=== PATIENT | male | born 1985 | race Caucasian/White ===

== ENCOUNTER → 2017-06-13 | Outpatient (CLI) | payer BC ==
--- NOTE | 2017-06-13 11:41 | MR ---
EXAMINATION TYPE: MR wrist RT wo con DATE OF EXAM: 06/13/2017 COMPARISON: NONE HISTORY: Pain in right wrist x 7 mths Standard multiplanar, multisequence MRI departmental protocol Multiplanar, multisequence images of the right were acquired. Diffusion weighted imaging was performe d. FINDINGS: There is no focal bone marrow edema appreciated. No fracture line is seen. Small subchondra l cyst is present within the lunate. Carpals are aligned. No carpocarpal widening is seen. Scapholuna te and lunatotriquetral ligaments are intact. The triangular fibrocartilage is grossly intact within the limitations of this nonarthrographic study. At the volar surface of the wrist situated between the flexor retinaculum and the trapezoid anterior to the trapezium there is a 0.5 x 0.4 x 0.3 cm cystic lesion with elongated component extending betwe en the flexor retinaculum (opposing the flexor pollicis longus tendon) and the flexor carpi radialis tendon on PD axial fat sat image 18 and 17 and coronal image 9 most commonly representing a small bryan glion cyst. Dorsally there is a second multiloculated ganglion cysts overlying the scapholunate joint and proxima l scaphoid pole that measures 1.7 x 0 point for centimeters in transverse by anterior posterior dimen alma and 1.0 cm in craniocaudal dimension on axial PD fat-sat image 11 and coronal image 18 as well a s image 17. This is seen deep to the extensor retinaculum splaying the second and third compartments. IMPRESSION: 1. Dorsal and volar ganglion cyst, unilocular at the volar surface and multilocular at the dorsal charlie face as described above. 2. Small subchondral cyst within the lunate which may represent early arthropathy or sequela of prior trauma. 3. No focal bone marrow edema, fracture or tendinosis.
== END | disposition home or self-care (01) ==
LOC: RADMRIMAIN 06:02
PROVIDERS: ATTEND Orthopaedic Surgery
DX: M67.431 Ganglion, right wrist (principal)

== ENCOUNTER → 2020-01-01 | Outpatient (CLI) | payer BC ==
--- NOTE | 2020-01-01 18:01 | CONS ---
CONSULTATION DATE OF SERVICE: 01/01/2020 This patient is a 34-year-old gentleman who has been evaluated in Sleep Center for snoring, awakenings from sleep, and for significant excessive daytime sleepiness. HISTORY OF PRESENT ILLNESS/SLEEP-WAKE EVALUATION: Patient's usual sleep schedule on weekdays is from 10 p.m. to 5 a.m. and on weekends from 11 p.m. to 7 or 8 a.m. No problems with falling asleep, although he has a TV in the bedroom. He usually sleeps on the back position. According to his , he has loud snoring, grinding of his teeth, positive history of sleeptalking and heartburn. The patient wakes up from sleep once with nocturia. Positive history of hypnagogical hallucinations. No history of sleep paralysis or cataplexy. In the morning the patient wakes up tired, falling asleep during the day. [place] Sleepiness Scale is significantly increased at 16. The patient takes up to two naps at 11 a.m. and 2 p.m. He feels refreshed after naps. He sees vivid dreams during naps. PAST MEDICAL HISTORY: Positive for acid reflux. MEDICATIONS: Celexa, omeprazole. PAST SURGICAL HISTORY: [place] tooth removed. SOCIAL HISTORY: Negative for smoking. Alcohol consumption occasional. FAMILY HISTORY: Positive for arthritis, cancer. REVIEW OF SYSTEMS: Sleepiness during the day. PHYSICAL EXAMINATION: GENERAL: A pleasant gentleman without distress. VITAL SIGNS: BP 146/80, HR 50, RR 16, height 5 feet 11-1/2 inches, weight 218 pounds. Body mass index 29.9. Temperature 97.8. Oxygen saturation at room air 96%. HEENT: PERRLA, EOMI. Evaluation of oropharynx showed tongue protrudes midline. Extremely low position of soft palate. Mallampati IV. NECK: Supple. No JVD. Thyroid is not palpable. Neck measures 16 inches in circumference. LUNGS: Clear to percussion and to auscultation. Good air exchange. No wheezing or rhonchi. HEART: S1, S2 regular. No murmurs, gallops or rubs. ABDOMEN: Soft and nontender. Bowel sounds are present. No organomegaly. EXTREMITIES: No clubbing or cyanosis. POLISHER EYEGLASS FRAMES: Awake, alert, and oriented X3. Cranial nerves 2 to 7 intact. There is no fasciculation or atrophy. noted. No focal deficits observed. IMPRESSION: 1. Loud snoring, awakenings from sleep with nocturia, extremely low position of soft palate, sleepiness; obstructive sleep apnea-hypopnea syndrome. 2. Positive history of hypnagogical hallucinations. 3. Vivid dreams during naps. 4. Significant excessive daytime sleepiness with [place] Sleepiness Scale 16. The patient takes two naps a day. Differential diagnosis should include hypersomnia, including narcolepsy without cataplexy. 5. Overweight, borderline obesity. BMI 29.9. 6. Acid reflux. PLAN: 1. Home sleep apnea test for evaluation of patient's breathing during sleep. 2. CPAP treatment if sleep study is positive for obstructive sleep apnea-hypopnea syndrome. 3. PSG with a following multiple sleep latency test if the sleep study is negative for obstructive sleep apnea-hypopnea syndrome or if after treatment of obstructive sleep apnea-hypopnea syndrome patient continues to have sleepiness. 4. Watching and losing weight. 5. No driving if feeling sleepiness. Sincerely, Ruben Thompson MD, PhD, FAASM Diplomat of [employer] Special[employer] Board of [employer] Medicine Collarette Separator of [facility] [place] MMODL / IJN: [id number] /
== END | disposition home or self-care (01) ==
LOC: SLEEP 16:39
PROVIDERS: ATTEND Internal Medicine
DX: G47.33 Obstructive sleep apnea (adult) (pediatric) (principal); K21.9 Gastro-esophageal reflux disease without esophagitis; Z86.59 Personal history of other mental and behavioral disorders; E66.9 Obesity, unspecified; Z68.29 Body mass index [BMI] 29.0-29.9, adult
CPT/HCPCS: 99211

== ENCOUNTER → 2020-03-10 | Outpatient (CLI) | payer BC ==
--- NOTE | 2020-03-11 03:02 | SFUN ---
SLEEP CENTER FOLLOW UP NOTE DATE OF SERVICE: 03/10/2020 This 34-year-old gentleman had been followed in Sleep Center for treatment of obstructive sleep apnea-hypopnea syndrome. Recently, patient had a home sleep apnea test which showed mild obstructive sleep apnea. Subsequently, patient was started on treatment with CPAP and today is his first visit on CPAP. He sleeps better with the CPAP, but he continued to feel sleepiness during the day in about the same range that he felt before starting CPAP. [place] Sleepiness Scale today is the same as before 16. I checked CPAP unit It is an automatic regimen. Range of the pressure 5-15. Average pressure 14.3, usage 25 out of 30 nights for more than 4 hours with average usage 5.7 hours per night. Leak is 23 L/minute, but apnea-hypopnea index is in normal range 2.3. MEDICATIONS: Celexa, omeprazole. PHYSICAL EXAMINATION: GENERAL: Patient in no distress. VITAL SIGNS: BP 152/67, HR 50, RR 16, weight 223 pounds, temperature 97.9, oxygen saturation at room air 95%. HEENT: PERRLA, EOMI. Oropharynx extremely low position of soft palate. Mallampati 4. NECK: Supple, no JVD. Thyroid is not palpable. LUNGS: Clear to percussion and to auscultation. Good air exchange. No wheezing or rhonchi. HEART: S1, S2 regular. No murmurs, gallops, or rubs. ABDOMEN: Soft and nontender. Bowel sounds are present. No organomegaly appreciated. EXTREMITIES: No clubbing or cyanosis. BOX OFFICE CLERK: Awake, alert, and oriented X3. Cranial nerves 2 to 7 intact. There is no fasciculation or atrophy. noted. No focal deficits observed. IMPRESSION: 1. Obstructive sleep apnea-hypopnea syndrome; apnea-hypopnea index 9.6 with oxygen desaturation down to 75% by results of home sleep apnea test. On auto PAP, patient demonstrated good compliance, respiration normalized, but the patient continued to feel sleepiness. 2. Sleepiness, [place] Sleepiness Scale 16, positive history of questionable hypnagogic hallucinations and vivid dreaming during naps. Differential diagnosis include narcolepsy as additional diagnosis. 3. Acid reflux. 4. Overweight, borderline to obesity. PLAN: 1. Patient will continue to use CPAP equipment every night for the whole night. 2. Multiple sleep latency test for objective evaluation of patient's symptoms of excessive daytime sleepiness will be done after the night on CPAP. 3. Sleep hygiene with regular time in bed for at least 7-1/2 to 8 hours. 4. No driving if feeling sleepiness. 5. I will see patient for follow-up visit after the MSLT to discuss results and following plan. Thank you very much for allowing me to participate in management of your patient. Sincerely, Ruben Thompson MD, PhD, FAASM Diplomat of [place] [employer] Specialties [employer] Board of Internal Medicine Pneudraulic Systems Mechanic of [facility] [place] MMODL / IJN: [id number] /
== END | disposition home or self-care (01) ==
LOC: SLEEP 16:43
PROVIDERS: ATTEND Internal Medicine
DX: G47.33 Obstructive sleep apnea (adult) (pediatric) (principal); Z99.89 Dependence on other enabling machines and devices; K21.9 Gastro-esophageal reflux disease without esophagitis; G47.419 Narcolepsy without cataplexy; E66.3 Overweight

== ENCOUNTER → 2021-10-26 | Outpatient (CLI) | payer BC ==
--- NOTE | 2021-10-26 17:42 | P.PN ---
Subjective DATE: 10/26/2021 FOLLOW UP VISIT. Patient with obstructive sleep apnea hypopnea syndrome return to sleep center for follow-up visit. Recently patient had home sleep apnea test and I discussed results of the test with the patient in details. Test showed that patient has obstructive sleep apnea hypopnea syndrome in mild range with apnea-hypopnea index 8.3 but because patient has symptoms of significant excessive daytime sleepiness he shod restart treatment with CPAP. [place] sleepiness scale is 13 which indicates excessive daytime sleepiness. I discussed with patient options for choosing mask with CPAP equipment. MEDICATIONS:1. Omeprazole During physical exam: GENERAL: A pleasant patient without any distress. VITAL SIGNS: BP 147/89, HR 54, RR 12, weight to 13.4, height 5 foot 11-1/2 inches, temperature 97.6, oxygen saturation at room air 96. HEENT: PERRLA, EOMI.low position of soft palate, Mallapati for. NECK: Supple. No JVD. LUNGS: Clear to percussion and to auscultation. Good air exchange. No wheezing or rhonchi. HEART: S1, S2 regular. ABDOMEN: Soft and nontender.[] EXTREMITIES: No clubbing or cyanosis. ENVIRONMENTAL SCIENTIST: Awake, alert, and oriented x3. No focal deficit. Impressions: 1. Obstructive sleep apnea-hypopnea syndrome in mild range by results of home sleep apnea test. 2. Significant sleepiness by [place] Sleepiness Scale. 3. Acid reflux. 4. Overweight. Plan: 1. Prescription for AutoPap equipment range over the pressure of 5-14 with the airfit P-10 nasal pillow mask. Patient should use PAP equipment every night for the whole night. 2. To change air filter at least 1-2 times per month. 3. PAP unit should stay lower then position of the head. 4. Advised patient to remove all remaining water from humidifier canister daily and make it dry after each usage. Refill canister with fresh distilled water before each usage. 5. Sleep hygiene with regular time in bed for at least 8 hours. 6. Precautions related to driving. No driving if feel any sleepiness. 7. I will maintain prescription for PAP supplies including mask, tube, filters. 8. Follow up visit in 1-3 months or earlier if patient has any problems to check compliance with treatment, clinical response on treatment and make any necessary adjustments related to mask fitting pressure and humidification. 9. Watching weight. Thank you very much for allowing me to participate in the management of your patient. Ruben Thompson MD, PhD, FAASM. Diplomat of [place] Board of Sleep Medicine, Sleep Medicine Board by [place] Board of Internal Medicine Credit Risk Manager of [facility] [place]
== END ==
LOC: SLEEP 15:44
PROVIDERS: ATTEND Internal Medicine
DX: G47.33 Obstructive sleep apnea (adult) (pediatric) (principal); K21.9 Gastro-esophageal reflux disease without esophagitis; E66.3 Overweight; Z99.89 Dependence on other enabling machines and devices; Z79.899 Other long term (current) drug therapy
CPT/HCPCS: 99212

== ENCOUNTER → 2022-01-19 | Outpatient (CLI) | payer BC ==
--- NOTE | 2022-01-19 16:56 | P.PN ---
Subjective DATE: 01/19/2022 FOLLOW UP VISIT. Patient with obstructive sleep apnea hypopnea syndrome return to sleep center for follow-up visit. Recently patient had sleep study which documented obstructive sleep apnea hypopnea syndrome. Patient was initiated on PAP therapy and today is first visit after treatment was started. Patient was able to use PAP equipment every night for the whole night. The patient does not have significant problems with the mask, PAP pressure and humidification. [place] sleepiness scale is 10. I checked information from PAP unit. PAP unit pressure 5-14, average 11.3 cm H2O. Usage is 73 % and 63% for more then 4 hours, average 5.5 hours per night. Leak is 15.3 l/m, which is in acceptable range. Apnea Hypopnea Index is 2.4, which is normal. MEDICATIONS:1. Omeprazole During physical exam: GENERAL: A pleasant patient without any distress. VITAL SIGNS: BP 143/91, HR 56, RR 16 , weight 223, temperature 97.8, oxygen saturation at room air 96% . HEENT: PERRLA, EOMI.low position of soft palate, Mallapati 4 . NECK: Supple. No JVD. LUNGS: Clear to percussion and to auscultation. Good air exchange. No wheezing or rhonchi. HEART: S1, S2 regular. ABDOMEN: Soft and nontender.[] EXTREMITIES: No clubbing or cyanosis. WOOD CALKER: Awake, alert, and oriented x3. No focal deficit. Impressions: 1. Obstructive sleep apnea-hypopnea syndrome. Patient demonstrated borderline compliance with treatment, benefiting from treatment. Sleepiness is less well patient using CPAP [place] Sleepiness Scale decreased from 13 before treatment to 10 today. 2. Acid reflux. 3. Overweight. Plan: 1. Continue using PAP equipment every night for the whole night. 2. To change air filter at least 1-2 times per month. 3. PAP unit should stay lower then position of the head. 4. Advised patient to remove all remaining water from humidifier canister daily and make it dry after each usage. Refill canister with fresh distilled water before each usage. 5. Sleep hygiene with regular time in bed for at least 8 hours. 6. Precautions related to driving. No driving if feel any sleepiness. 7. I will maintain prescription for PAP supplies including mask, tube, filters. 8. Follow up visit in 6 months or earlier if patient has any problems. 9. Watching weight. Thank you very much for allowing me to participate in the management of your patient. Ruben Thompson MD, PhD, FAASM. Diplomat of [place] Board of Sleep Medicine, Sleep Medicine Board by [place] of Internal Medicine Wire Wrapper Machine Operator of [facility] [place]
== END | disposition home or self-care (01) ==
LOC: SLEEP 15:44
PROVIDERS: ATTEND Internal Medicine
DX: G47.33 Obstructive sleep apnea (adult) (pediatric) (principal); Z99.89 Dependence on other enabling machines and devices; K21.9 Gastro-esophageal reflux disease without esophagitis; E66.3 Overweight

== ENCOUNTER → 2022-08-09 | Outpatient (CLI) | payer BC ==
--- NOTE | 2022-08-09 17:17 | P.PN ---
Subjective DATE: [] FOLLOW UP VISIT. Patient with obstructive sleep apnea hypopnea syndrome return to sleep center for follow-up visit. Information from previous visit have been reviewed. Patient is using PAP equipment every night for the whole night, getting PAP supplies in time. The patient does not have significant problems with the mask, PAP unit and humidification. [place] sleepiness scale is slightly increased to 12. I checked information from PAP unit and explained to the patient. PAP unit pressure 5-14, average 12.2 cm H2O. Usage is 83% and 78 % for more then 4 hours, average 6 hours per night. Leak is 21.2 l/m, which is in acceptable range. Apnea Hypopnea Index is 2.0, which is normal. MEDICATIONS:1. Celexa 40 mg once a day 2. Omeprazole 40 mg once a day During physical exam: GENERAL: A pleasant patient without any distress. VITAL SIGNS: BP 140 08/[birth year]1992, HR 56, RR 16, weight 240, temperature 97.6, oxygen saturation at room air 98 % . HEENT: PERRLA, EOMI.low position of soft palate, Mallapati 4. NECK: Supple. No JVD. LUNGS: Clear to percussion and to auscultation. Good air exchange. No wheezing or rhonchi. HEART: S1, S2 regular. ABDOMEN: Soft and nontender.[] EXTREMITIES: No clubbing or cyanosis. SALES FORCE DEVELOPER: Awake, alert, and oriented x3. No focal deficit. Impressions: 1. Obstructive sleep apnea-hypopnea syndrome. Patient demonstrated great compliance with treatment, benefiting from treatment. 2. Mild obesity, body mass index 33.0, patient increased his weight on 17 pounds comparing with the previous visit. 3. Acid reflux. 4. History of anxiety. 5. History of depression. Plan: 1. Continue using PAP equipment every night for the whole night. 2. To change air filter at least 1-2 times per month. 3. PAP unit should stay lower then position of the head. 4. Advised patient to remove all remaining water from humidifier canister daily and make it dry after each usage. Refill canister with fresh distilled water before each usage. 5. Sleep hygiene with regular time in bed for at least 8 hours. 6. Precautions related to driving. No driving if feel any sleepiness. 7. I will maintain prescription for PAP supplies including mask, tube, filters. 8. Watching and losing weight 9. .Follow up visit in 6 months or earlier if patient has any problems. Thank you very much for allowing me to participate in the management of your patient. Ruben Thompson MD, PhD, FAASM. Diplomat of [place] Board of Sleep Medicine, Sleep Medicine Board by [place] Board of Internal Medicine Refinery Operator Helper Crude Unit of [facility] [place]
== END ==
LOC: SLEEP 16:13
PROVIDERS: ATTEND Internal Medicine
DX: G47.33 Obstructive sleep apnea (adult) (pediatric) (principal); E66.9 Obesity, unspecified; Z99.89 Dependence on other enabling machines and devices; K21.9 Gastro-esophageal reflux disease without esophagitis; Z68.33 Body mass index [BMI] 33.0-33.9, adult; F41.9 Anxiety disorder, unspecified; F32.A Depression, unspecified; Z79.899 Other long term (current) drug therapy
CPT/HCPCS: 99212

== ENCOUNTER → 2023-02-21 | Outpatient (CLI) | payer BC | LOC: 3 N SLEEP 16:20 | PROVIDERS: ATTEND Internal Medicine | DX: G47.33 Obstructive sleep apnea (adult) (pediatric) (principal) | CPT/HCPCS: 99212 ==

== ENCOUNTER → 2023-09-12 | Outpatient (CLI) | payer BC ==
[2023-09-12 17:15] VITALS: BP 142/87; PULSE 64; RESP 16; TEMP 97.8
--- NOTE | 2023-09-12 17:42 | P.PROGSL ---
Subjective DATE: 09/12/2023 FOLLOW UP VISIT. Patient with obstructive sleep apnea hypopnea syndrome return to sleep center for follow-up visit. Information from previous visit have been reviewed. Patient is using PAP equipment every night for the whole night, getting PAP supplies in time. The patient does not have significant problems with the mask, PAP unit and humidification. [place] sleepiness scale is 9, which is borderline. I checked information from PAP unit. PAP unit pressure 5-14, average 12.6 cm H2O. Usage is 70% for more then 4 hours, average 6.5 hours per night. Leak is 14.5 l/m, which is in acceptable range. Apnea Hypopnea Index is 2.9, which is normal. MEDICATIONS: Please see below During physical exam: GENERAL: A pleasant patient without any distress. VITAL SIGNS: Please see below, weight 227 pounds, BMI 31.6. HEENT: PERRLA, EOMI.low position of soft palate, Mallapati 4 . NECK: Supple. No JVD. LUNGS: Clear to percussion and to auscultation. Good air exchange. No wheezing or rhonchi. HEART: S1, S2 regular. ABDOMEN: Soft and nontender.[] EXTREMITIES: No clubbing or cyanosis. REVENUE AGENT: Awake, alert, and oriented x3. No focal deficit. Impressions: 1. Obstructive sleep apnea-hypopnea syndrome. Patient demonstrated good compliance with treatment, benefiting from treatment. 2. Mild obesity, patient lost 13 pounds comparing with previous visit, BMI 31.6. 3. Acid reflux. 4. History of anxiety. 5. History of depression. Plan: 1. Continue using PAP equipment every night for the whole night. 2. To change air filter at least 1-2 times per month. 3. PAP unit should stay lower then position of the head. 4. Advised patient to remove all remaining water from humidifier canister daily and make it dry after each usage. Refill canister with fresh distilled water before each usage. 5. Sleep hygiene with regular time in bed for at least 8 hours. 6. Precautions related to driving. No driving if feel any sleepiness. 7. I will maintain prescription for PAP supplies including mask, tube, filters. 8. Follow up visit in 6 months or earlier if patient has any problems. 9. Watching and continue losing weight. Thank you very much for allowing me to participate in the management of your patient. Ruben Thompson MD, PhD, FAASM. Diplomat of [place] Board of Sleep Medicine, Sleep Medicine Board by [place] Board of Internal Medicine Production Designer of [facility] [place] Objective - Vital Signs Vital Signs: Vital Signs Temp 97.8 F 09/12/23 16:59 Pulse 64 09/12/23 16:59 Resp 16 09/12/23 16:59 BP 142/87 09/12/23 16:59 Pulse Ox 97 09/12/23 16:59 FiO2 Intake & Output 09/11/23 09/12/23 09/12/23 18:59 06:59 18:59 Weight 102.965 kg Home Medications: Home Medications Medication Instructions Recorded Confirmed Type Cephalexin [Keflex] 500 mg PO Q6HR #40 cap 07/13/15 Rx Hydrocodone/Acetaminophen [[place] 1 tab PO Q6HR PRN #10 tab 07/13/15 Rx 5-325] Citalopram Hydrobromide [CeleXA] 20 mg PO DAILY 09/12/23 09/12/23 History Losartan [Cozaar] 25 mg PO DAILY 09/12/23 09/12/23 History Omeprazole 40 mg PO DAILY 09/12/23 09/12/23 History
== END ==
LOC: 3 N SLEEP 16:35
PROVIDERS: ATTEND Internal Medicine
DX: G47.33 Obstructive sleep apnea (adult) (pediatric) (principal); E66.9 Obesity, unspecified; K21.9 Gastro-esophageal reflux disease without esophagitis; F32.A Depression, unspecified; F41.9 Anxiety disorder, unspecified; Z68.31 Body mass index [BMI] 31.0-31.9, adult; Z79.899 Other long term (current) drug therapy; Z99.89 Dependence on other enabling machines and devices
CPT/HCPCS: 99212

== ENCOUNTER → 2024-05-14 | Outpatient (CLI) | payer BC ==
[2024-05-14 17:16] VITALS: BP 149/88; PULSE 62; RESP 16; TEMP 97.6
--- NOTE | 2024-05-14 17:26 | P.PROGSL ---
Subjective DATE: 05/14/2024 FOLLOW UP VISIT. Patient with obstructive sleep apnea hypopnea syndrome return to sleep center for follow-up visit. Information from previous visit have been reviewed. Patient is using PAP equipment every night for the whole night, getting PAP supplies in time. The patient does not have significant problems with the mask, PAP unit and humidification. [place] sleepiness scale is slightly increased to 12. I checked information from PAP unit. PAP unit pressure 5-14, average 12.6 cm H2O. Usage is 90% for more then 4 hours, average 7 hours per night. Leak is slightly increased to 28.4 l/m, patient did not change his mask for a while. Apnea Hypopnea Index is 1.6, which is normal. MEDICATIONS have been reviewed, please see below. During physical exam: GENERAL: A pleasant patient without any distress. VITAL SIGNS: Please see below, weight is 232 lbs. HEENT: PERRLA, EOMI.low position of soft palate, Mallapati 4 . NECK: Supple. No JVD. LUNGS: Clear to percussion and to auscultation. Good air exchange. No wheezing or rhonchi. HEART: S1, S2 regular. ABDOMEN: Soft and nontender. Slightly obese EXTREMITIES: No clubbing or cyanosis. DRINK MIXER: Awake, alert, and oriented x3. No focal deficit. Impressions: 1. Obstructive sleep apnea-hypopnea syndrome. Patient demonstrated great compliance with treatment, benefiting from treatment. 2. Mild obesity, BMI 32.2, patient increased his weight on 5 pounds comparing with previous visit. 3. Acid reflux. 4. History of depression. 5. History of anxiety. Plan: 1. Continue using PAP equipment every night for the whole night. 2. Sleep hygiene with regular time in bed for at least 7.5-8 hours 3. PAP unit should stay lower then position of the head. 4. Advised patient to remove all remaining water from humidifier canister daily and make it dry after each usage. Refill canister with fresh distilled water before each usage. 5. Watching and losing weight. 6. Precautions related to driving. No driving if feel any sleepiness. 7. I will maintain prescription for PAP supplies including mask, tube, filters. 8. Follow up visit in 8 months or earlier if patient has any problems. Thank you very much for allowing me to participate in the management of your patient. Ruben Thompson MD, PhD, FAASM. Diplomat of [place] Board of Sleep Medicine, Sleep Medicine Board by [employer] Board of Internal Medicine Squad Boss of [facility] [place] Objective - Vital Signs Vital Signs: Vital Signs Temp 97.6 F 05/14/24 17:15 Pulse 62 05/14/24 17:15 Resp 16 05/14/24 17:15 BP 149/88 05/14/24 17:15 Pulse Ox 95 05/14/24 17:15 FiO2 Home Medications: Home Medications Medication Instructions Recorded Confirmed Type Cephalexin [Keflex] 500 mg PO Q6HR #40 cap 07/13/15 Rx Hydrocodone/Acetaminophen [[place] 1 tab PO Q6HR PRN #10 tab 07/13/15 Rx 5-325] Citalopram Hydrobromide [CeleXA] 20 mg PO DAILY 09/12/23 09/12/23 History Losartan [Cozaar] 25 mg PO DAILY 09/12/23 05/14/24 History Omeprazole 40 mg PO DAILY 09/12/23 05/14/24 History Sertraline HCl [Zoloft] 75 mg PO DAILY 05/14/24 05/14/24 History Testosterone Cypionate See Rx Instructions .ROUTE .COMPLEX 05/14/24 05/14/24 History [Depo-Testosterone] buPROPion HCL [Wellbutrin SR] 150 mg PO DAILY 05/14/24 05/14/24 History
== END ==
LOC: 3 N SLEEP 16:57
PROVIDERS: ATTEND Internal Medicine
DX: G47.33 Obstructive sleep apnea (adult) (pediatric) (principal); E66.9 Obesity, unspecified; K21.9 Gastro-esophageal reflux disease without esophagitis; Z68.32 Body mass index [BMI] 32.0-32.9, adult; Z86.59 Personal history of other mental and behavioral disorders
CPT/HCPCS: 99212